=== PATIENT | male | born 1980 | race Caucasian/White ===

== ENCOUNTER 2022-02-01 00:09 | Emergency (ER) | payer BC ==
[~2022-02-01] VITALS: Ht 167.6 cm; Wt 86.2 kg
[2022-02-01 00:14] VITALS: BP 148/86
--- NOTE | 2022-02-01 00:20 | NUR ---
PT TAKEN TO BED 11
--- NOTE | 2022-02-01 01:03 | NUR ---
[facility] EXAMINING PT BEDSIDE
[2022-02-01] MEDS ORDERED: KETOROLAC 15 MG/ML VIAL IVP ONE (01:05)
[2022-02-01] MEDS ORDERED: NACL 0.9% 1,000 ML IV SCH (01:05)
[2022-02-01] MEDS ORDERED: MORPHINE SULFATE 4 MG/ML SYR IVP ONE (01:05)
[2022-02-01] MEDS ORDERED: ONDANSETRON 4 MG ODT PO ONE (01:05)
[2022-02-01 01:21] LABS: APPEARANCE,URINE SL CLOUDY (CLEAR); BILIRUBIN,URINE NEGATIVE (NEGATIVE); BLOOD, URINE 3+ (NEGATIVE); COLOR,URINE YELLOW (YELLOW); LEUKOCYTE ESTERASE ,URINE NEGATIVE (NEGATIVE); NITRITE, URINE NEGATIVE (NEGATIVE); UGLUCOSE NEGATIVE (NEGATIVE)
[2022-02-01 01:23] LABS: BASOPHILS % (AUTO) 0.4 % (0.0-2.0); EOSINOPHILS # (AUTO) 0.1 K/uL (0-0.4); EOSINOPHILS % (AUTO) 1.2 % (0.0-4.0); HEMATOCRIT 43.9 % (36-52); HEMOGLOBIN 15.4 g/dL (12.0-18.0); LYMPHOCYTES # (AUTO) 1.7 K/uL (2.0-11.5); LYMPHOCYTES % (AUTO) 17.3 % (20.5-51.1); MEAN CORPUSCULAR HEMOGLOBIN 32 pg (27-31); MEAN CORPUSCULAR HGB CONC 35 g/dL (33-37); MEAN CORPUSCULAR VOLUME 90.1 fL (80-94); MONOCYTES % (AUTO) 10.6 % (1.7-9.3); NEUTROPHILS # (AUTO) 6.8 K/uL (1.8-7.7); NEUTROPHILS % (AUTO) 70.5 % (42.2-75.2); PLATELET COUNT (AUTO) 201 K/uL (140-450); RED BLOOD CELL COUNT(AUTO) 4.88 MIL/uL (4.20-6.10); WHITE BLOOD COUNT (AUTO) 9.7 K/uL (4.8-10.8)
--- NOTE | 2022-02-01 01:34 | NUR ---
PT WALKED IN C/O LEFT LOWER PELVIC PAIN RADIATING TO GROIN XTODAY. PT STATES IT FEELS LIKE PAST KIDNEY STONES. DENIES N/V. PT STATES LAST TIME HE WAS TOLD HE HAD 7 STONES BETWEEN BOTH KIDNEYS.
[2022-02-01 01:43] LABS: ALBUMIN 3.4 g/dL (3.4-5.0); CARBON DIOXIDE 26.2 mmol/L (21-32); CREATININE 1.5 mg/dL (0.6-1.3); POTASSIUM 4.2 mmol/L (3.5-5.1); TOTAL BILIRUBIN 0.4 mg/dL (0.0-1.0)
[2022-02-01 01:46] LABS: RBC,URINE >20 (MANY) /HPF (0-5); WBC,URINE 0-5 /HPF (0-5)
--- NOTE | 2022-02-01 02:21 | NUR ---
PT TAKEN TO CT VIA WHEELCHAIR
[2022-02-01] MEDS ORDERED: HYDROcodone/APAP 10/325 MG 1 TAB TAB PO ONE (04:15)
[2022-02-01 04:20] VITALS: BP 148/86
--- NOTE | 2022-02-01 04:20 | NUR ---
Patient discharged with v/s stable. Written and verbal after care instructions given and explained. Patient verbalized understanding. Ambulatory with steady gait. All questions addressed prior to discharge. Advised to follow up with PMD.
== END 2022-02-01 04:20 | disposition home or self-care (01) ==
LOC: MED 00:09
DX: N20.1 Calculus of ureter (principal)
CPT/HCPCS: 36415; 74177; 80053; 81001; 85025; 96361; 96374; 96375; 99285; J1885; J2270; Q0162; Q9967; J7030